=== PATIENT | female | born 1985 ===

== ENCOUNTER 2018-11-30 20:22 | Observation (INO) | payer SELFPAY ==
[2018-11-30] MEDS ORDERED: Sodium Chloride 0.9% 1,000 ML IV STA (22:15)
--- NOTE | 2018-11-30 22:24 | ED PDOC ---
Arrival/HPI - General Chief Complaint: Abdominal Pain Time Seen by Provider: 11/30/18 20:28 Historian: Patient - History of Present Illness Narrative History of Present Illness (Text): 11/30/18 22:15 33 year old female, with no significant past medical history, presents to the emergency department complaining of abdominal pain. Patient reports she has been experiencing diffuse abdominal pain with associated nausea and vomiting since this afternoon. Patient states she is unable to tolerate PO. Patient also notes she is currently menstruating and denies any recent travel. Patient denies any fevers, chills, headache, dizziness, chest pain, shortness of breath, dyspnea on exertion, cough, back pain, neck pain, or any other complaints. Time/Duration: Other (this afternoon) Symptom Onset: Gradual Symptom Course: Unchanged Activities at Onset: Light Context: Home Past Medical History - Provider Review Nursing Documentation Reviewed: Yes - Genitourinary/Gynecological Other/Comment: PCOS - Psychiatric Hx Substance Use: Yes - Anesthesia Hx Anesthesia: No Hx Anesthesia Reactions: No Hx Malignant Hyperthermia: No Family/Social History - Physician Review Nursing Documentation Reviewed: Yes Family/Social History: Unknown Family HX Smoking Status: Light Smoker < 10 Cigarettes Daily Hx Alcohol Use: Yes Frequency of alcohol use: Socially Hx Substance Use: Yes Substance used: marijuana Allergies/Home Meds Allergies/Adverse Reactions: Allergies ampicillin Allergy (Verified 11/30/18 21:23) ANAPHYLAXIS Review of Systems - Physician Review All systems were reviewed & negative as marked: Yes - Review of Systems Constitutional: absent: Fevers Respiratory: absent: SOB, Cough, Wheezing Cardiovascular: absent: Chest Pain Gastrointestinal: Abdominal Pain, Nausea, Vomiting Genitourinary Female: absent: Dysuria, Frequency, Hematuria, Urine Output Changes Musculoskeletal: absent: Back Pain, Neck Pain Skin: absent: Rash Neurological: absent: Headache, Dizziness Physical Exam Vital Signs Reviewed: Yes Vital Signs Temp Pulse Resp BP Pulse Ox 11/30/18 22:18 98.7 F 69 20 136/63 100 11/30/18 20:23 98.2 F 102 H 18 129/91 H 97 Temperature: Afebrile Blood Pressure: Normal Pulse: Regular (102 bpm) Respiratory Rate: Normal Appearance: Positive for: Well-Appearing, Non-Toxic Pain Distress: None Mental Status: Positive for: Alert and Oriented X 3 - Systems Exam Head: Present: Atraumatic, Normocephalic Pupils: Present: PERRL Extroacular Muscles: Present: EOMI Conjunctiva: Present: Normal Mouth: Present: Moist Mucous Membranes Neck: Present: Normal Range of Motion Respiratory/Chest: Present: Clear to Auscultation, Good Air Exchange. No: Respiratory Distress, Accessory Muscle Use Cardiovascular: Present: Regular Rate and Rhythm, Normal S1, S2. No: Murmurs Abdomen: Present: Tenderness (diffuse abdominal tenderness). No: Distention, Peritoneal Signs Upper Extremity: Present: Normal Inspection. No: Cyanosis, Edema Lower Extremity: Present: Normal Inspection. No: Edema Neurological: Present: GCS=15, CN II-XII Intact, Speech Normal Skin: Present: Warm, Dry, Normal Color. No: Rashes Psychiatric: Present: Alert, Oriented x 3, Normal Insight, Normal Concentration Medical Decision Making ED Course and Treatment: 11/30/18 22:23 Impression: 17 year old female presents to the Emergency department complaining of abdominal pain since this afternoon. Plan: -- Labs -- CT Abdomen and Pelvis -- IV Fluids -- Toradol -- Reassess and disposition Prior Visits: Notes and results from previous visits were reviewed. Progress Notes: 12/01/18 01:34 CT Abdomen and Pelvis: Moderate amount of free fluid is noted in the abdomen and pelvis with increased density reaching 32 Hounsfield units. 3.3 cm hypodense cystic lesion of the left ovary. Enhancing hepatic lesion measuring 2.4 cm adjacent to the suprahepatic IVC suggestive of a benign hemangioma. Benign and chronic, uncomplicated. The remaining liver is of uniform attenuation without mass or defect. There is no intra or extrahepatic biliary ductal dilatation. The spleen is normal. The gallbladder is within normal limits. The pancreas is of normal contour and attenuation characteristics. There is no evidence of adrenal mass. Both kidneys demonstrate prompt and equal nephrograms. The kidneys are normal in size, shape and configuration. There is no evidence of renal or ureteral mass. No renal or ureteral calculi are identified. There is no hydroureter or hydronephrosis. No evidence for appendicitis. There is no bowel wall thickening. No evidence for small or large bowel obstruction. There is no evidence of intrinsic or extrinsic bladder mass. Images of the lung bases show no evidence of pleural or parenchymal mass. There are no pleural effusions. The bony structures are free of lytic or blastic lesions. IMPRESSION: Moderate amount of mildly hyperdense fluid in the abdomen and pelvis. Findings may represent moderate amount of blood tinged peritoneal fluid. This can be secondary to ruptured hemorrhagic lesion of the ovaries like hemorrhagic cyst, ruptured follicle or even ruptured ectopic . Clinical evaluation, correlation with beta-hCG levels and a surgical consultation are suggested. No active contrast extravasation is documented to suggest active bleeding. Thank you for your kind referral of this patient. Electronically signed on Dec 01, 2018 1:30:55 AM EST by: Esteban Gross M.D., Certified by ABR, MSK, Neuroradiology 12/01/18 01:38 Case discussed with surgical consultant application software developer, who will evaluate pt in emergency department. 12/01/18 02:46 Case discussed with medical care manager application software developer, who is aware and agrees with plan. 12/01/18 02:[address] Rodriguez, who is aware and agrees with plan. Accepts pt in to hospitalist service. Pt will go to [facility] observation for abdominal pain. 12/01/18 04:00 Patient was evaluated by in the ED/discussed with surgeon application software developer . - Lab Interpretations I have reviewed the lab results: Yes - RAD Interpretation Radiology Orders: 11/30/18 22:14 ABD & PELVIS IV CONTRAST ONLY [CT] Stat Barrel Scraper: Radiologist - Medication Orders Current Medication Orders: Sodium Chloride (Sodium Chloride 0.9%) 1,000 mls @ 999 mls/hr IV .Q1H1M STA Stop: 11/30/18 23:15 Discontinued Medications Ketorolac Tromethamine (Toradol) 30 mg IVP ONCE ONE Stop: 11/30/18 22:16 - Scribe Statement The provider has reviewed the documentation as recorded by the Scribe Alee wilkinson with Maryam All medical record entries made by the Scribe were at my direction and personally dictated by me. I have reviewed the chart and agree that the record accurately reflects my personal performance of the history, physical exam, medical decision making, and the department course for this patient. I have also personally directed, reviewed, and agree with the discharge instructions and disposition. Disposition/Present on Arrival - Present on Arrival Any Indicators Present on Arrival: No History of DVT/PE: No History of Uncontrolled Diabetes: No Urinary Catheter: No History of Decub. Ulcer: No History Surgical Site Infection Following: None - Disposition Have Diagnosis and Disposition been Completed?: Yes Diagnosis: Abdominal pain Disposition: HOSPITALIZED Disposition Time: 03:04 Patient Plan: Observation Patient Problems: Current Active Problems Problem Status Onset Abdominal pain Acute Condition: STABLE
[2018-11-30 22:26] LABS: MEAN CORPUSCULAR HEMOGLOBIN 31.9 pg (25.0-35.0); MEAN CORPUSCULAR HGB CONC 33.2 g/dl (31.0-37.0); MEAN PLATELET VOLUME 10.2 fl (7.0-11.0); RBC 3.76 10^6/uL (3.5-6.1); WHITE BLOOD COUNT 14.8 10^3/uL (4.5-11.0)
[2018-11-30 22:38] LABS: ALB/GLOB RATIO 1.6 (1.1-1.8); ALBUMIN 4.6 g/dL (3.0-4.8); ALT/SGPT 26 U/L (7-56); AST/SGOT 25 U/L (14-36); BLOOD UREA NITROGEN 17 mg/dL (7-21); CALCIUM 9.5 mg/dL (8.4-10.5); GFR NON-AFRICAN AMERICAN > 60; LIPASE 62 U/L (23-300)
[2018-11-30] MEDS ORDERED: Iohexol 350 MG/100 ML VIAL ONE (22:57)
[2018-12-01] MEDS ORDERED: Aztreonam 1 Gm in NS 100mL 100 ML IVPB STA (01:49)
[2018-12-01] MEDS ORDERED: metroNIDAZOLE IV 500 mg/100 ml 500 MG/100 ML BAG IVPB STA (01:50)
[2018-12-01] MEDS ORDERED: Morphine 2 mg/ml ISec IVP STA (02:03)
--- NOTE | 2018-12-01 03:42 | CP.PCM.HP ---
<Osmar Pierce - Last Filed: 12/01/18 04:32> History of Present Illness - History of Present Illness History of Present Illness: Osmar Pierce, PGY-1, Internal Medicine History and Physical for Dr. Rodriguez 33 year old female with past medical history of chlamydia which was treated and PCOS presents with 2 day history of diffuse abdominal pain. Patient reports that she has never this pain before. She reports that the pain is a severe cramping pain that started bilaterally in the pelvis but has now radiated to the upper abdomen. Patient also reports that the pain radiates to bilateral flank regions. Patient had 2-3 episodes of nonbloody, nonbilious vomiting yesterday. Patient no longer complains of nausea or vomiting. Patient has had multiple episodes of yellow-green diarrhea for the past day. Patient denies fever but reports that she is currently on her period and thus has had hematuria. Patient denies dysuria. Her last period prior to this period was on October 20. Patient has abnormal periods due to her PCOS, however, the length of her periods and the amount of bleeding is normal. This period has had decreased bleeding in comparison to the prior periods. Patient is currently sexually active with a single partner she has had for 3 years. Partner was recently tested for STDs and found to be negative. Patient denies chest pain, shortness of breath, headaches, dizziness, change in vision, change in hearing, lower extremity swelling. 12- point ROS was negative except for what was mentioned above. PMH: as mentioned above PSH: denies FMHx: father's side has history of unspecified "ovarian issues". Otherwise, family history is not pertinent. SHx: smokes 1/2 PPD for 10 years, drinks 1 glass of wine or more socially on the weekends, reports using marijuana 3-4 times a week Allergies: ampicillin leading to inflammation of throat PCP: none Present on Admission - Present on Admission Any Indicators Present on Admission: No Review of Systems - Constitutional Constitutional: absent: Anorexia, Chills, Fever, Headache, Weakness - EENT Eyes: absent: Blurred Vision Ears: absent: Ear Discharge - Cardiovascular Cardiovascular: absent: Chest Pain, Dyspnea - Respiratory Respiratory: absent: Cough, Hemoptysis, Wheezing - Gastrointestinal Gastrointestinal: Abdominal Pain, Diarrhea (yellow-green), Nausea, Vomiting. absent: Belching, Bloating, Constipation, Heartburn - Genitourinary Genitourinary: Hematuria. absent: Dysuria, Urinary Incontinence - Menstruation Menstruation: Currently Menstual, Cycle >35 Days, Menses 1-7 Days, Normal Menses - Musculoskeletal Musculoskeletal: absent: Arthralgias - Integumentary Integumentary: absent: Acne, Alopecia - Neurological Neurological: absent: Focal Weakness, Headaches Past Patient History - Past Social History Smoking Status: Light Smoker < 10 Cigarettes Daily Alcohol: Social Drugs: Cannabis - GENITOURINARY/GYNECOLOGICAL Other/Comment: PCOS - PSYCHIATRIC Hx Substance Use: Yes - SURGICAL HISTORY Hx Surgeries: No - ANESTHESIA Hx Anesthesia: No Hx Anesthesia Reactions: No Hx Malignant Hyperthermia: No Meds Allergies/Adverse Reactions: Allergies Allergy/AdvReac Type Severity Reaction Status Date / Time ampicillin Allergy ANAPHYLAXIS Verified 11/30/18 21:23 Physical Exam - Head Exam Head Exam: ATRAUMATIC, NORMAL INSPECTION, NORMOCEPHALIC - Eye Exam Eye Exam: EOMI Pupil Exam: NORMAL ACCOMODATION - ENT Exam ENT Exam: Mucous Membranes Moist - Respiratory Exam Respiratory Exam: Clear to Auscultation Bilateral, NORMAL BREATHING PATTERN - Cardiovascular Exam Cardiovascular Exam: REGULAR RHYTHM - GI/Abdominal Exam GI & Abdominal Exam: Normal Bowel Sounds, Soft, Tenderness. absent: Distended, Firm, Guarding, Mass, Pulsatile Mass, Rebound - Extremities Exam Extremities exam: Positive for: full ROM, normal inspection - Back Exam Back exam: tenderness (right flank) - Neurological Exam Neurological exam: Alert, CN II-XII Intact, Oriented x3 - Psychiatric Exam Psychiatric exam: Normal Affect, Normal Mood - Skin Skin Exam: Dry, Intact, Normal Color Results - Vital Signs Recent Vital Signs: Last Vital Signs Temp 98.5 F 12/01/18 01:09 Pulse 73 12/01/18 01:09 Resp 19 12/01/18 01:09 BP 113/64 12/01/18 01:09 Pulse Ox 100 12/01/18 01:09 - Labs Result Diagrams: 11/30/18 22:00 11/30/18 22:00 Labs: Laboratory Results - last 24 hr 11/30/18 11/30/18 11/30/18 22:00 22:00 22:00 WBC 14.8 H RBC 3.76 Hgb 12.0 Hct 36.1 MCV 96.0 MCH 31.9 MCHC 33.2 RDW 13.0 Plt Count 287 MPV 10.2 Sodium 138 Potassium 4.2 Chloride 105 Carbon Dioxide 25 Anion Gap 12 BUN 17 Creatinine 0.6 L Est GFR ( Amer) > 60 Est GFR (Non-Af Amer) > 60 Random Glucose 102 Calcium 9.5 Total Bilirubin 0.7 AST 25 ALT 26 Alkaline Phosphatase 57 Total Protein 7.5 Albumin 4.6 Globulin 2.9 Albumin/Globulin Ratio 1.6 Lipase 62 Beta HCG, Quant < 2.39 Assessment & Plan - Assessment and Plan (Free Text) Assessment: 33 year old female with past medical history of chlamydia which was treated and PCOS presents with 2 day history of diffuse abdominal pain. Patient reports that she has never this pain before. She reports that the pain is a severe cramping pain that started bilaterally in the pelvis but has now radiated to the upper abdomen. Patient also reports vomiting and diarrhea. Plan: Abdominal Pain 2/2 to hemorrhagic ovarian cyst vs. ovarian cyst. Rule out PID, gastroenteritis, UTI. Doubt ectopic -CTAP: mildly hyperdense fluid in abdomen and pelvis. Blood tinged peritoneal fluid. Possibly due to ruptured hemorrhagic lesion of the ovaries. -Patient has history of PCOS and chlamydia. -Leukocytosis at 14.8 -UA ordered rule out UTI -Pelvic ultrasound ordered to further evaluate possible hemorrhagic ovarian cyst -Chlamydia and Gonorrhea culture ordered to rule out PID -Doubt ruptured ectopic as bHCG is less than 2.39 and vital signs are within normal limits at this time -Toradol for moderate pain and morphine for severe pain as needed Current use of tobacco, alcohol, and marijuana -Patient counseled regarding tobacco, alcohol, and marijuana use. -Nicotine patch ordered -[facility] protocol GI prophylaxis: pepcid 20 mg daily DVT prophylaxis: lovenox 40 mg daily Patient plan discussed with Dr. Rodriguez - Date & Time Date: 12/01/18 Time: 03:45 <Magui Rodriguez - Last Filed: 12/01/18 05:59> Results - Vital Signs Recent Vital Signs: Last Vital Signs Temp 98.5 F 12/01/18 01:09 Pulse 73 12/01/18 01:09 Resp 19 12/01/18 01:09 BP 113/64 12/01/18 01:09 Pulse Ox 100 12/01/18 01:09 - Labs Result Diagrams: 11/30/18 22:00 11/30/18 22:00 Labs: Laboratory Results - last 24 hr 11/30/18 11/30/18 11/30/18 22:00 22:00 22:00 WBC 14.8 H RBC 3.76 Hgb 12.0 Hct 36.1 MCV 96.0 MCH 31.9 MCHC 33.2 RDW 13.0 Plt Count 287 MPV 10.2 Sodium 138 Potassium 4.2 Chloride 105 Carbon Dioxide 25 Anion Gap 12 BUN 17 Creatinine 0.6 L Est GFR ( Amer) > 60 Est GFR (Non-Af Amer) > 60 Random Glucose 102 Calcium 9.5 Total Bilirubin 0.7 AST 25 ALT 26 Alkaline Phosphatase 57 Total Protein 7.5 Albumin 4.6 Globulin 2.9 Albumin/Globulin Ratio 1.6 Lipase 62 Beta HCG, Quant < 2.39 Urine Color Urine Appearance Urine pH Ur Specific [place] Urine Protein Urine Glucose (UA) Urine Ketones Urine Blood Urine Nitrate Urine Bilirubin Urine Urobilinogen Ur Leukocyte Esterase Urine RBC Urine WBC Ur Epithelial Cells Urine Bacteria 11/30/18 23:55 WBC RBC Hgb Hct MCV MCH MCHC RDW Plt Count MPV Sodium Potassium Chloride Carbon Dioxide Anion Gap BUN Creatinine Est GFR ( Amer) Est GFR (Non-Af Amer) Random Glucose Calcium Total Bilirubin AST ALT Alkaline Phosphatase Total Protein Albumin Globulin Albumin/Globulin Ratio Lipase Beta HCG, Quant Urine Color Light red Urine Appearance Cloudy Urine pH 6.0 Ur Specific [place] 1.015 Urine Protein Negative Urine Glucose (UA) Negative Urine Ketones 40 H Urine Blood Large H Urine Nitrate Negative Urine Bilirubin Negative Urine Urobilinogen 0.2 Ur Leukocyte Esterase Negative Urine RBC Tntc H Urine WBC 0 - 2 Ur Epithelial Cells 0 - 2 Urine Bacteria Rare Attending/Attestation - Attestation I have personally seen and examined this patient.: Yes I have fully participated in the care of the patient.: Yes I have reviewed all pertinent clinical information: Yes Notes (Text): 12/01/18 05:58 Seen in the ER when she was in bed # 3. Agree with history, physical examination, assessment and plan.
--- NOTE | 2018-12-01 04:03 | CP.PCM.CON ---
History of Present Illness - History of Present Illness History of Present Illness: General surgery consult for Dr. Menjivar Consulted for: abdominal pain, abdominal fluid Pt is a 33F with PMH of PCOS who presented to the ER for approximately 36 hours of abdominal pain. She states it started in her epigastrium and then spread subcostal and then to her entire abdomen. At first she attributed it to her current menstrual cycle, though she usually does not have dysmenorrhea normally. The pain got worse and did not subside with BM's and was associated with nausea and vomiting since yesterday AM so she came to ER. Pain is constant with severe episodes of spasmodic BL subcostal/epigastric pain. Patient also complains of pain in her right mid back. Patient denies any hematemesis--vomit was originally food and then yellow. Patient denies fevers, chest pain, SOB, diarrhea, constipation, melena, hematochezia, dysuria, hematuria, vaginal discharge or any other complaints. Patient has never had any prior episodes. Pt admits history of treated chlamydia many years ago and cervical biopsies many years ago, which were negative. She is monogamous and occasionally has unprotected sex with her boyfriend, not currently on control, negative urine beta-hcg Reviewed CT scan images and [facility] report, attempted to contact the [facility] reading radiologist regarding it and spoke to the hotline senior sales representative 4 times over 2 hours requesting call back starting at 1:30 AM--never received a call back. PMH: PCOS PSH: none ALL: Ampicillin social: smokes cigarettes daily, occasional ETOH, occasional Marijuana Review of Systems - Review of Systems All systems: reviewed and no additional remarkable complaints except (as per HPI) Past Patient History - Past Medical History & Family History Past Medical History?: Yes Pertinent Family History: Paternal aunts had "ovarian problems" after which one aunt diet--does not know details - Past Social History Smoking Status: Light Smoker < 10 Cigarettes Daily Alcohol: Social Drugs: Cannabis - GENITOURINARY/GYNECOLOGICAL Hx Reproductive Disorders: Yes (PCOS) Hx Sexually Transmitted Disorders: Yes (prior chlamydia--treated medically) - PSYCHIATRIC Hx Substance Use: Yes - SURGICAL HISTORY Hx Surgeries: No - ANESTHESIA Hx Anesthesia: No Hx Anesthesia Reactions: No Hx Malignant Hyperthermia: No Meds Allergies/Adverse Reactions: Allergies Allergy/AdvReac Type Severity Reaction Status Date / Time ampicillin Allergy ANAPHYLAXIS Verified 11/30/18 21:23 - Medications Medications: Current Medications Nicotine (Nicoderm Cq) 1 patch TD DAILY ZAIDA Physical Exam - Constitutional Appears: Well, Non-toxic, No Acute Distress - Head Exam Head Exam: ATRAUMATIC, NORMOCEPHALIC - Eye Exam Eye Exam: Normal appearance. absent: Conjunctival injection, Scleral icterus - ENT Exam ENT Exam: Mucous Membranes Moist, Normal Oropharynx - Respiratory Exam Respiratory Exam: NORMAL BREATHING PATTERN. absent: Accessory Muscle Use, Respiratory Distress - Cardiovascular Exam Cardiovascular Exam: RRR - GI/Abdominal Exam GI & Abdominal Exam: Guarding (voluntary), Soft, Tenderness (diffuse moderate tenderness to palpation with severe epigastric/BL UQ tenderness to palpation). absent: Distended, Rebound, Rigid - Rectal Exam Rectal Exam: NORMAL INSPECTION. absent: Hemorrhoids, Fecal Impaction - Exam Bimanual exam: NORMAL BIMANUAL EXAM (bloody discharge d/t menses). absent: Adenexal Mass, Cervical Motion Tendernes - Extremities Exam Extremities exam: Positive for: pedal pulses present. Negative for: calf tenderness, pedal edema - Neurological Exam Neurological exam: Alert, Oriented x3 - Psychiatric Exam Psychiatric exam: Normal Affect, Normal Mood - Skin Skin Exam: Dry, Normal Color, Warm Results - Vital Signs Recent Vital Signs: Last Vital Signs Temp 98.5 F 12/01/18 01:09 Pulse 73 12/01/18 01:09 Resp 19 12/01/18 01:09 BP 113/64 12/01/18 01:09 Pulse Ox 100 12/01/18 01:09 - Labs Result Diagrams: 11/30/18 22:00 11/30/18 22:00 Labs: Laboratory Results - last 24 hr 11/30/18 11/30/18 11/30/18 22:00 22:00 22:00 WBC 14.8 H RBC 3.76 Hgb 12.0 Hct 36.1 MCV 96.0 MCH 31.9 MCHC 33.2 RDW 13.0 Plt Count 287 MPV 10.2 Sodium 138 Potassium 4.2 Chloride 105 Carbon Dioxide 25 Anion Gap 12 BUN 17 Creatinine 0.6 L Est GFR ( Amer) > 60 Est GFR (Non-Af Amer) > 60 Random Glucose 102 Calcium 9.5 Total Bilirubin 0.7 AST 25 ALT 26 Alkaline Phosphatase 57 Total Protein 7.5 Albumin 4.6 Globulin 2.9 Albumin/Globulin Ratio 1.6 Lipase 62 Beta HCG, Quant < 2.39 - Imaging and Cardiology CT scan - abdomen Status: Image reviewed by me, Report reviewed by me CT scan - pelvis Status: Image reviewed by me, Report reviewed by me Assessment & Plan - Assessment and Plan (Free Text) Assessment: 33F with Abdominal pain, nausea, vomiting and free peritoneal fluid concerning for bleeding of unknown source Plan: Trend CBC, CMP UA Abdominal US, pelvic US May consider gynecology consult Will follow up official read of the CT scan PRN pain and nausea medication NPO IVF Further surgical planning pending clinical progress and study results Discussed with Dr. Menjivar, who agrees with above Maria Isabel Burden, PGY2
[2018-12-01] MEDS ORDERED: Lactated Ringer's 1,000 ML IV SCH (05:15)
[2018-12-01 05:42] LABS: URINE BILIRUBIN NEGATIVE (NEGATIVE); URINE BLOOD LARGE (NEGATIVE); URINE GLUCOSE (UA) NEGATIVE (NEGATIVE); URINE LEUKOCYTE ESTERASE NEGATIVE Leu/uL (NEGATIVE); URINE PROTEIN NEGATIVE mg/dL (<30 mg/dL); URINE UROBILINOGEN 0.2 E.U./dL (<1 E.U./dL)
[2018-12-01 05:43] LABS: URINE APPEARANCE CLOUDY (CLEAR); URINE COLOR LIGHT RED (YELLOW)
[2018-12-01 05:57] LABS: URINE BACTERIA RARE /hpf; URINE EPITHELIAL CELLS 0 - 2 /hpf (0-5); URINE RBC TNTC /hpf (0-2); URINE WBC 0 - 2 /hpf (0-6)
[2018-12-01] MEDS: Morphine 2 mg/ml ISec IVP PRN ×2 (06:53→10:49)
[2018-12-01 08:55] LABS: BASO # 0.02 K/mm3 (0.0-2.0); BASO % 0.2 % (0.0-3.0); EOS # 0.1 (0.0-0.7); EOS % 1.5 % (1.5-5.0); GRAN # 5.58 (1.4-6.5); GRAN % 68.5 % (50.0-68.0); LYMPH % 24.3 % (22.0-35.0); MEAN CELL VOLUME 95.2 fl (80.0-105.0); MEAN CORPUSCULAR HEMOGLOBIN 31.7 pg (25.0-35.0); MEAN CORPUSCULAR HGB CONC 33.3 g/dl (31.0-37.0); MEAN PLATELET VOLUME 9.9 fl (7.0-11.0); MONO # 0.5 (0.1-0.6); MONO % 5.5 % (1.0-6.0); RBC 3.15 10^6/uL (3.5-6.1); WHITE BLOOD COUNT 8.2 10^3/uL (4.5-11.0)
[2018-12-01 08:59] LABS: INR 1.03; PARTIAL THROMBOPLASTIN TIME 24.3 Seconds (25.1-36.5); PROTHROMBIN TIME 11.9 SECONDS (9.4-12.5)
[2018-12-01 09:05] LABS: ALB/GLOB RATIO 1.5 (1.1-1.8); ALBUMIN 3.8 g/dL (3.0-4.8); ALT/SGPT 23 U/L (7-56); AST/SGOT 14 U/L (14-36); BLOOD UREA NITROGEN 15 mg/dL (7-21); GFR NON-AFRICAN AMERICAN > 60
--- NOTE | 2018-12-01 09:12 | RAD ---
Date of service: 12/01/2018 HISTORY: epigastric pain COMPARISON: No prior. FINDINGS: LUNGS: No active pulmonary disease. PLEURA: No significant pleural effusion identified, no pneumothorax apparent. CARDIOVASCULAR: No aortic atherosclerotic calcification present. Normal cardiac size. No pulmonary vascular congestion. OSSEOUS STRUCTURES: No significant abnormalities. VISUALIZED UPPER ABDOMEN: Normal. OTHER FINDINGS: None. IMPRESSION: No active disease.
[2018-12-01] MEDS ORDERED: Sodium Chloride 0.9% 500 ML IV STA (09:46)
[2018-12-01] MEDS ORDERED: Enoxaparin 40 mg Syringe SC SCH (10:00)
--- NOTE | 2018-12-01 11:03 | CT ---
Date of service: 12/01/2018 PROCEDURE: CT Abdomen and Pelvis with contrast HISTORY: abdominal pain COMPARISON: None. TECHNIQUE: Contrast dose: 100 cc of Omni 350 Radiation dose: Total exam DLP = 228.37 mGy-cm. This CT exam was performed using one or more of the following dose reduction techniques: Automated exposure control, adjustment of the mA and/or kV according to patient size, and/or use of iterative reconstruction technique. FINDINGS: LOWER THORAX: Unremarkable. LIVER: There is a 2 cm hemangioma adjacent to the IVC. The liver is otherwise unremarkable GALLBLADDER AND BILE DUCTS: Unremarkable. PANCREAS: Unremarkable. No gross lesion or ductal dilatation. SPLEEN: Unremarkable. ADRENALS: Unremarkable. No mass. KIDNEYS AND URETERS: Unremarkable. No hydronephrosis. No solid mass. VASCULATURE: Unremarkable. No aortic aneurysm. No aortic atherosclerotic calcification or mural plaque present. BOWEL: Unremarkable. No obstruction. No gross mural thickening. APPENDIX: Normal appendix. PERITONEUM: There is a moderate amount of ascites that measures 32 Hounsfield units in density. LYMPH NODES: Unremarkable. No enlarged lymph nodes. BLADDER: Unremarkable. REPRODUCTIVE: There is a 2 x 3 cm left ovarian cyst BONES: No acute fracture. OTHER FINDINGS: The report concurs with the preliminary [facility] report IMPRESSION: Moderate amount of mildly hyperdense fluid in the abdomen and pelvis. Findings may represent a small amount of blood-tinged peritoneal fluid. This could be due to a ruptured hemorrhagic cyst or ectopic . Correlation with beta HCG levels is recommended.
--- NOTE | 2018-12-01 14:10 | CARD ---
APPROVED REPORT Date of service: 12/01/2018 EKG Measurement Heart [id number] ID [id number] <Conclusion> Sinus bradycardia Otherwise normal ECG
[2018-12-01 14:18] LABS: BASO # 0.01 K/mm3 (0.0-2.0); BASO % 0.2 % (0.0-3.0); EOS # 0.1 (0.0-0.7); EOS % 2.3 % (1.5-5.0); GRAN # 3.49 (1.4-6.5); GRAN % 57.4 % (50.0-68.0); LYMPH # 2.1 (1.2-3.4); LYMPH % 33.8 % (22.0-35.0); MEAN CELL VOLUME 95.7 fl (80.0-105.0); MEAN CORPUSCULAR HGB CONC 33.5 g/dl (31.0-37.0); MEAN PLATELET VOLUME 9.1 fl (7.0-11.0); MONO # 0.4 (0.1-0.6); MONO % 6.3 % (1.0-6.0); RBC 2.81 10^6/uL (3.5-6.1); RED CELL DISTRIBUTION WIDTH 12.8 % (11.5-14.5); WHITE BLOOD COUNT 6.1 10^3/uL (4.5-11.0)
--- NOTE | 2018-12-01 14:51 | US ---
Date of service: 12/01/2018 HISTORY: diffuse abdominal pain, nausea and vomiting COMPARISON: None. TECHNIQUE: Sonographic evaluation of the abdomen. FINDINGS: LIVER: Measures 13.4 cm. Hepatopedal blood flow. Fatty infiltration manifest ultrasonographically as increased echogenicity of the liver parenchyma. No mass. No intrahepatic bile duct dilatation. GALLBLADDER: Unremarkable. No gallstones. COMMON BILE DUCT: Measures 2.8 mm. No stones. No dilatation. PANCREAS: Unremarkable as visualized. No mass. No ductal dilatation. RIGHT KIDNEY: Measures 4.5 x 10.7cm. Normal echogenicity. No calculus, mass, or hydronephrosis. LEFT KIDNEY: Measures 5.4 x 11.6cm. Normal echogenicity. No calculus, mass, or hydronephrosis. SPLEEN: Normal in size and contour. No mass. AORTA: No aneurysmal dilatation. IVC: Unremarkable. OTHER FINDINGS: Trace perihepatic ascites. IMPRESSION: Trace right upper quadrant ascites. Otherwise unremarkable study.
--- NOTE | 2018-12-01 14:53 | US ---
Date of service: 12/01/2018 HISTORY: Abdominal pain/fluid, possible rupture ovary cyst LMP: Current COMPARISON: December 01, 2018 TECHNIQUE: Transabdominal only. Real-time technique with 2D, duplex and color Doppler FINDINGS: UTERUS: Measures 3.3 x 3.6 x 7.2 cm. Normal in size and appearance. No fibroid or other mass lesion seen. ENDOMETRIUM: Measures 3.4 mm in diameter. No ultrasound findings to suggest gestational sac, fluid, debris, mass or polyp or other pathologic process within the endometrium. CERVIX: No cervical abnormality identified. RIGHT OVARY: Measures 1.7 x 1.7 x 2.0 cm. No solid mass. Normal flow. LEFT OVARY: Measures 3.4 x 3.6 x 4.1 cm. No solid mass. Normal flow. Simple cyst 2.4 x 2.1 x 2.5 FREE FLUID: Trace fluid about both adnexa. OTHER FINDINGS: None. IMPRESSION: Unremarkable uterus, endometrial echo complex and right adnexa. Simple cyst left adnexa. Trace fluid in the pelvis.
[2018-12-01 23:27] VITALS: RESP 20
--- NOTE | 2018-12-02 07:11 | CP.PCM.PN ---
Subjective - Date & Time of Evaluation Date of Evaluation: 12/02/18 Time of Evaluation: 07:10 - Subjective Subjective: Resident Progress Note for Hospitalist Service Objective - Vital Signs/Intake and Output Vital Signs (last 24 hours): Temp Pulse Resp BP Pulse Ox 98.5 F 70 20 117/71 100 12/01/18 23:26 12/01/18 23:26 12/01/18 23:26 12/01/18 23:26 12/01/18 23:26 Intake and Output: 12/02/18 12/02/18 06:59 18:59 Intake Total 480 Balance 480 - Medications Medications: Current Medications Famotidine (Pepcid) 20 mg IVP DAILY [facility] Last Admin: 12/01/18 10:50 Dose: 20 mg Morphine Sulfate (Morphine) 1 mg IVP Q4H PRN PRN Reason: Pain, severe (8-10) Last Admin: 12/01/18 10:49 Dose: 1 mg Nicotine (Nicoderm Cq) 1 patch TD DAILY [facility] Last Admin: 12/01/18 10:50 Dose: 1 patch Ondansetron HCl (Zofran Inj) 4 mg IVP Q6H PRN PRN Reason: Nausea/Vomiting Last Admin: 12/01/18 10:50 Dose: 4 mg - Labs Labs: 12/01/18 14:00 12/01/18 08:10 PT 11.9 SECONDS (9.4-12.5) 12/01/18 08:10 INR 1.03 12/01/18 08:10 APTT 24.3 Seconds (25.1-36.5) L 12/01/18 08:10 - Additional Findings Additional findings: - Head Exam Head Exam: ATRAUMATIC, NORMAL INSPECTION, NORMOCEPHALIC - Eye Exam Eye Exam: EOMI Pupil Exam: NORMAL ACCOMODATION - ENT Exam ENT Exam: Mucous Membranes Moist - Respiratory Exam Respiratory Exam: Clear to Auscultation Bilateral, NORMAL BREATHING PATTERN - Cardiovascular Exam Cardiovascular Exam: REGULAR RHYTHM - GI/Abdominal Exam GI & Abdominal Exam: Normal Bowel Sounds, Soft, Tenderness. absent: Distended, Firm, Guarding, Mass, Pulsatile Mass, Rebound - Extremities Exam Extremities exam: Positive for: full ROM, normal inspection - Back Exam Back exam: tenderness (right flank) - Neurological Exam Neurological exam: Alert, CN II-XII Intact, Oriented x3 - Psychiatric Exam Psychiatric exam: Normal Affect, Normal Mood - Skin Skin Exam: Dry, Intact, Normal Color Assessment and Plan - Assessment and Plan (Free Text) Assessment: 33 year old female with past medical history of chlamydia which was treated and PCOS presents with 2 day history of diffuse abdominal pain. Patient reports that she has never this pain before. She reports that the pain is a severe cramping pain that started bilaterally in the pelvis but has now radiated to the upper abdomen. Patient also reports vomiting and diarrhea. Plan: Abdominal Pain 2/2 to hemorrhagic ovarian cyst vs. ovarian cyst. Rule out PID, gastroenteritis, UTI. Doubt ectopic -CTAP: mildly hyperdense fluid in abdomen and pelvis. Blood tinged peritoneal fluid. Possibly due to ruptured hemorrhagic lesion of the ovaries. -Patient has history of PCOS and chlamydia. -Leukocytosis at 14.8 -UA ordered rule out UTI -Pelvic ultrasound ordered to further evaluate possible hemorrhagic ovarian cyst -Chlamydia and Gonorrhea culture ordered to rule out PID -Doubt ruptured ectopic as bHCG is less than 2.39 and vital signs are within normal limits at this time -Toradol for moderate pain and morphine for severe pain as needed Current use of tobacco, alcohol, and marijuana -Patient counseled regarding tobacco, alcohol, and marijuana use. -Nicotine patch ordered -[facility] protocol GI prophylaxis: pepcid 20 mg daily DVT prophylaxis: lovenox 40 mg daily
--- NOTE | 2018-12-02 08:18 | CP.PCM.PN ---
Subjective - Date & Time of Evaluation Date of Evaluation: 12/02/18 Time of Evaluation: 06:45 - Subjective Subjective: Surgery Progress note. Dr. Menjivar. Pt seen and examined at bedside this morning. Tolerating diet. No new complaints. Abd pain is mildly improved. Discussed case with Edson Zhu, this morning. All images were reviewed by him. He states that the pelvic fluid as seen on imaging is trace and the patient can be discharged if pain is tolerated and she may follow up with him in his office on 12/08/18. Primary Medicine team notified about the discussion. Objective - Vital Signs/Intake and Output Vital Signs (last 24 hours): Temp Pulse Resp BP Pulse Ox 98.5 F 70 20 117/71 100 12/01/18 23:26 12/01/18 23:26 12/01/18 23:26 12/01/18 23:26 12/01/18 23:26 Intake and Output: 12/02/18 12/02/18 06:59 18:59 Intake Total 480 Balance 480 - Medications Medications: Current Medications Famotidine (Pepcid) 20 mg IVP DAILY [facility] Last Admin: 12/01/18 10:50 Dose: 20 mg Morphine Sulfate (Morphine) 1 mg IVP Q4H PRN PRN Reason: Pain, severe (8-10) Last Admin: 12/01/18 10:49 Dose: 1 mg Nicotine (Nicoderm Cq) 1 patch TD DAILY [facility] Last Admin: 12/01/18 10:50 Dose: 1 patch Ondansetron HCl (Zofran Inj) 4 mg IVP Q6H PRN PRN Reason: Nausea/Vomiting Last Admin: 12/01/18 10:50 Dose: 4 mg - Labs Labs: 12/01/18 14:00 12/01/18 08:10 PT 11.9 SECONDS (9.4-12.5) 12/01/18 08:10 INR 1.03 12/01/18 08:10 APTT 24.3 Seconds (25.1-36.5) L 12/01/18 08:10 - Constitutional Appears: Well, Non-toxic, No Acute Distress - Head Exam Head Exam: ATRAUMATIC, NORMAL INSPECTION - Eye Exam Eye Exam: EOMI, Normal appearance. absent: Scleral icterus - ENT Exam ENT Exam: Mucous Membranes Moist - GI/Abdominal Exam GI & Abdominal Exam: Soft, Tenderness (left lower quadrant tenderness to palpation). absent: Distended, Guarding, Rebound - Extremities Exam Extremities Exam: Normal Inspection. absent: Calf Tenderness - Neurological Exam Neurological Exam: Alert, Awake, Oriented x3 - Skin Skin Exam: Dry, Intact, Normal Color, Warm Assessment and Plan - Assessment and Plan (Free Text) Assessment: 33yo F with pelvic fluid, likely hemorrhagic gyn physician source. Plan: - Discussed case with OBGyn, Dr. Clarita Hobbs. Follow up in office 12/08/18 - Tolerating diet - Hemoglobin stable - No surgery intervention warranted at this time - Cleared for discharge from surgical standpoint Further recs as per Dr. Otto Montenegro PGY2 surgery
[2018-12-02 08:36] LABS: BASO # 0.01 K/mm3 (0.0-2.0); BASO % 0.2 % (0.0-3.0); EOS # 0.2 (0.0-0.7); EOS % 3.1 % (1.5-5.0); GRAN # 3.38 (1.4-6.5); GRAN % 60.7 % (50.0-68.0); HEMOGLOBIN 9.3 g/dL (12.0-16.0); LYMPH # 1.6 (1.2-3.4); LYMPH % 28.5 % (22.0-35.0); MEAN CELL VOLUME 95.6 fl (80.0-105.0); MEAN CORPUSCULAR HEMOGLOBIN 31.4 pg (25.0-35.0); MEAN CORPUSCULAR HGB CONC 32.9 g/dl (31.0-37.0); MONO # 0.4 (0.1-0.6); MONO % 7.5 % (1.0-6.0); RBC 2.96 10^6/uL (3.5-6.1); RED CELL DISTRIBUTION WIDTH 12.8 % (11.5-14.5); WHITE BLOOD COUNT 5.6 10^3/uL (4.5-11.0)
[2018-12-02 08:37] VITALS: BP 91/54; PULSE 61; TEMP 98; O2SAT 98
[2018-12-02 08:47] LABS: ALB/GLOB RATIO 1.4 (1.1-1.8); ALBUMIN 3.9 g/dL (3.0-4.8); ALT/SGPT 23 U/L (7-56); AST/SGOT 24 U/L (14-36); BLOOD UREA NITROGEN 11 mg/dL (7-21); CALCIUM 8.8 mg/dL (8.4-10.5); GFR NON-AFRICAN AMERICAN > 60
[2018-12-02] MEDS: Morphine 2 mg/ml ISec IVP PRN (11:06)
--- NOTE | 2018-12-02 11:20 | CP.PCM.DIS ---
<CarlaLeorasydney L - Last Filed: 12/02/18 13:49> Provider - Provider Date of Admission: 12/01/18 03:01 Attending physician: Ruben Ferreira MD Primary care physician: NO PRIMARY CARE PROVIDER Consults: 12/01/18 03:31 Consult [Physician Consult] Routine Comment: Consulting Provider: Milan Menjivar Consulting Physician: Milan Menjivar Reason for Consult: abdominal pain 12/01/18 08:43 Physician Consult Routine Comment: Consulting Provider: Clarita Hobbs Consulting Physician: Clarita Hobbs Reason for Consult: ? rauptured hemmorragic cyst of ovaries Time Spent in preparation of Discharge (in minutes): 35 Diagnosis - Discharge Diagnosis (1) Peritoneal fluid Status: Acute (2) Abdominal pain Status: Acute Hospital Course - Lab Results Lab Results: Micro Results 12/01/18 08:05 Blood Blood Culture - Preliminary NO GROWTH AFTER 24 HOURS 12/01/18 07:50 Blood Blood Culture - Preliminary NO GROWTH AFTER 24 HOURS Most Recent Lab Values WBC 5.6 10^3/uL (4.5-11.0) 12/02/18 07:30 RBC 2.96 10^6/uL (3.5-6.1) L 12/02/18 07:30 Hgb 9.3 g/dL (12.0-16.0) L 12/02/18 07:30 Hct 28.3 % (36.0-48.0) L 12/02/18 07:30 MCV 95.6 fl (80.0-105.0) 12/02/18 07:30 MCH 31.4 pg (25.0-35.0) 12/02/18 07:30 MCHC 32.9 g/dl (31.0-37.0) 12/02/18 07:30 RDW 12.8 % (11.5-14.5) 12/02/18 07:30 Plt Count 222 10^3/uL (120.0-450.0) 12/02/18 07:30 MPV 10.0 fl (7.0-11.0) 12/02/18 07:30 Gran % 60.7 % (50.0-68.0) 12/02/18 07:30 Lymph % (Auto) 28.5 % (22.0-35.0) 12/02/18 07:30 [place] % (Auto) 7.5 % (1.0-6.0) H 12/02/18 07:30 Eos % (Auto) 3.1 % (1.5-5.0) 12/02/18 07:30 Baso % (Auto) 0.2 % (0.0-3.0) 12/02/18 07:30 Gran # 3.38 (1.4-6.5) 12/02/18 07:30 Lymph # (Auto) 1.6 (1.2-3.4) 12/02/18 07:30 [place] # (Auto) 0.4 (0.1-0.6) 12/02/18 07:30 Eos # (Auto) 0.2 (0.0-0.7) 12/02/18 07:30 Baso # (Auto) 0.01 K/mm3 (0.0-2.0) 12/02/18 07:30 PT 11.9 SECONDS (9.4-12.5) 12/01/18 08:10 INR 1.03 12/01/18 08:10 APTT 24.3 Seconds (25.1-36.5) L 12/01/18 08:10 Sodium 140 mmol/L (132-148) 12/02/18 07:30 Potassium 4.1 mmol/L (3.6-5.0) 12/02/18 07:30 Chloride 108 mmol/L (98-107) H 12/02/18 07:30 Carbon Dioxide 26 mmol/L (21-33) 12/02/18 07:30 Anion Gap 10 (10-20) 12/02/18 07:30 BUN 11 mg/dL (7-21) 12/02/18 07:30 Creatinine 0.6 mg/dl (0.7-1.2) L 12/02/18 07:30 Est GFR ( Amer) > 60 12/02/18 07:30 Est GFR (Non-Af Amer) > 60 12/02/18 07:30 Random Glucose 76 mg/dL (70-110) 12/02/18 07:30 Calcium 8.8 mg/dL (8.4-10.5) 12/02/18 07:30 Phosphorus 3.2 mg/dL (2.5-4.5) 12/02/18 07:30 Magnesium 2.2 mg/dL (1.7-2.2) 12/02/18 07:30 Total Bilirubin 0.6 mg/dL (0.2-1.3) 12/02/18 07:30 AST 24 U/L (14-36) 12/02/18 07:30 ALT 23 U/L (7-56) 12/02/18 07:30 Alkaline Phosphatase 51 U/L (38-126) 12/02/18 07:30 Total Protein 6.6 g/dL (5.8-8.3) 12/02/18 07:30 Albumin 3.9 g/dL (3.0-4.8) 12/02/18 07:30 Globulin 2.7 gm/dL 12/02/18 07:30 Albumin/Globulin Ratio 1.4 (1.1-1.8) 12/02/18 07:30 Lipase 62 U/L (23-300) 11/30/18 22:00 Beta HCG, Quant < 2.39 mIU/mL (0-6.15) 11/30/18 22:00 Urine Color Light red (YELLOW) 11/30/18 23:55 Urine Appearance Cloudy (CLEAR) 11/30/18 23:55 Urine pH 6.0 (4.7-8.0) 11/30/18 23:55 Ur Specific [place] 1.015 (1.005-1.035) 11/30/18 23:55 Urine Protein Negative mg/dL (<30 mg/dL) 11/30/18 23:55 Urine Glucose (UA) Negative mg/dL (NEGATIVE) 11/30/18 23:55 Urine Ketones 40 mg/dL (NEGATIVE) H 11/30/18 23:55 Urine Blood Large (NEGATIVE) H 11/30/18 23:55 Urine Nitrate Negative (NEGATIVE) 11/30/18 23:55 Urine Bilirubin Negative (NEGATIVE) 11/30/18 23:55 Urine Urobilinogen 0.2 E.U./dL (<1 E.U./dL) 11/30/18 23:55 Ur Leukocyte Esterase Negative [place]/uL (NEGATIVE) 11/30/18 23:55 Urine RBC Tntc /hpf (0-2) H 11/30/18 23:55 Urine WBC 0 - 2 /hpf (0-6) 11/30/18 23:55 Ur Epithelial Cells 0 - 2 /hpf (0-5) 11/30/18 23:55 Urine Bacteria Rare /hpf (NONE) 11/30/18 23:55 Blood Type A POSITIVE 12/01/18 08:10 Blood Type Confirm A POSITIVE 12/01/18 09:30 Antibody Screen Negative 12/01/18 08:10 BBK History Checked No verified bt 12/01/18 08:10 - Hospital Course Hospital Course: On admission: 33 year old female with past medical history of chlamydia which was treated and PCOS presents with 2 day history of diffuse abdominal pain. Patient reports that she has never this pain before. She reports that the pain is a severe cramping pain that started bilaterally in the pelvis but has now radiated to the upper abdomen. Patient also reports that the pain radiates to bilateral flank regions. Patient had 2-3 episodes of nonbloody, nonbilious vomiting yesterday. Patient no longer complains of nausea or vomiting. Patient has had multiple episodes of yellow-green diarrhea for the past day. Patient denies fever but reports that she is currently on her period and thus has had hematuria. Patient denies dysuria. Her last period prior to this period was on October 20. Patient has abnormal periods due to her PCOS, however, the length of her periods and the amount of bleeding is normal. This period has had decreased bleeding in comparison to the prior periods. Patient is currently sexually active with a single partner she has had for 3 years. Partner was recently tested for STDs and found to be negative. Patient denies chest pain, shortness of breath, headaches, dizziness, change in vision, change in hearing, lower extremity swelling. 12-point ROS was negative except for what was mentioned above. Hospital course: Patient had abdomen pelvis CT done which showed Moderate amount of mildly hyperdense fluid in the abdomen and pelvis. Findings may represent a small amount of blood-tinged peritoneal fluid. This could be due to a ruptured hemorrhagic cyst or ectopic . Correlation with beta HCG levels is recommended. Patient was given dose of flagyl, aztreonam. Pain was managed with morphine. Pelvis ultrasound showed unremarkable uterus, endometrial echo complex, right adnexa, simple cyst left adnexa, trace fluid in pelvis. Abdomen ultrasound showed trace ascites. Surgery and LUDLOW MACHINE OPERATOR was consulted. Recommendation was given for patient to followup outpatient. Patient was optimized for discharge. Please see EMR for full summary. - Date & Time of H&P Date of H&P: 12/01/18 Time of H&P: 03:28 Discharge Exam - Additional Findings Additional findings: - Constitutional Appears: Well, Non-toxic, No Acute Distress - Head Exam Head Exam: ATRAUMATIC, NORMOCEPHALIC - Eye Exam Eye Exam: Normal appearance. absent: Conjunctival injection - ENT Exam ENT Exam: Mucous Membranes Moist - Respiratory Exam Respiratory Exam: NORMAL BREATHING PATTERN. absent: Accessory Muscle Use, Respiratory Distress - Cardiovascular Exam Cardiovascular Exam: RRR, S1 and S2 present. absent: Systolic Murmurs - GI/Abdominal Exam GI & Abdominal Exam: Bowel Sounds Present, Soft. absent: Distended, Rebound, Rigid, Tenderness, Guarding - Rectal Exam Rectal Exam: NORMAL INSPECTION. absent: Hemorrhoids, Fecal Impaction - Extremities Exam Extremities exam: Positive for: pedal pulses present. Negative for: calf tenderness, pedal edema - Neurological Exam Neurological exam: Alert, Oriented x3 - Psychiatric Exam Psychiatric exam: Normal Affect, Normal Mood - Skin Skin Exam: Dry, Normal Color, Warm Discharge Plan - Discharge Medications Prescriptions: Acetaminophen [Tylenol] 325 mg PO DAILY PRN 5 Days capsule PRN Reason: Pain, Moderate (4-7) - Follow Up Plan Condition: STABLE Disposition: HOME/ ROUTINE Patient education suggested?: Yes Instructions: Polycystic Ovary Syndrome, Acute Abdominal Pain (GEN) Additional Instructions: Please follow up with your primary medical doctor within one week. An appointment will be made for you to follow up at the [facility]. Please call to confirm appointment time. Also follow up with OB-CYLINDER CHECKER Dr. Clarita Hobbs within one week. You have been prescribed Tylenol. Please take as prescribed as needed for pain. Resume any home medications as prescribed. Return to ED if symptoms return or worsen. Referrals: [facility] [Outside] Clarita Hobbs MD [Staff Provider] - PCP,NO [Primary Care Provider] - <Ruben Ferreira - Last Filed: 12/02/18 14:31> Provider - Provider Date of Admission: 12/01/18 03:01 Attending physician: Ruben Ferreira MD Primary care physician: NO PRIMARY CARE PROVIDER Consults: 12/01/18 03:31 Consult [Physician Consult] Routine Comment: Consulting Provider: Milan Menjivar Consulting Physician: Milan Menjivar Reason for Consult: abdominal pain 12/01/18 08:43 Physician Consult Routine Comment: Consulting Provider: Clarita Hobbs Consulting Physician: Clarita Hobbs Reason for Consult: ? rauptured hemmorragic cyst of ovaries Hospital Course - Lab Results Lab Results: Micro Results 12/01/18 08:05 Blood Blood Culture - Preliminary NO GROWTH AFTER 24 HOURS 12/01/18 07:50 Blood Blood Culture - Preliminary NO GROWTH AFTER 24 HOURS Most Recent Lab Values WBC 5.6 10^3/uL (4.5-11.0) 12/02/18 07:30 RBC 2.96 10^6/uL (3.5-6.1) L 12/02/18 07:30 Hgb 9.3 g/dL (12.0-16.0) L 12/02/18 07:30 Hct 28.3 % (36.0-48.0) L 12/02/18 07:30 MCV 95.6 fl (80.0-105.0) 12/02/18 07:30 MCH 31.4 pg (25.0-35.0) 12/02/18 07:30 MCHC 32.9 g/dl (31.0-37.0) 12/02/18 07:30 RDW 12.8 % (11.5-14.5) 12/02/18 07:30 Plt Count 222 10^3/uL (120.0-450.0) 12/02/18 07:30 MPV 10.0 fl (7.0-11.0) 12/02/18 07:30 Gran % 60.7 % (50.0-68.0) 12/02/18 07:30 Lymph % (Auto) 28.5 % (22.0-35.0) 12/02/18 07:30 [place] % (Auto) 7.5 % (1.0-6.0) H 12/02/18 07:30 Eos % (Auto) 3.1 % (1.5-5.0) 12/02/18 07:30 Baso % (Auto) 0.2 % (0.0-3.0) 12/02/18 07:30 Gran # 3.38 (1.4-6.5) 12/02/18 07:30 Lymph # (Auto) 1.6 (1.2-3.4) 12/02/18 07:30 [place] # (Auto) 0.4 (0.1-0.6) 12/02/18 07:30 Eos # (Auto) 0.2 (0.0-0.7) 12/02/18 07:30 Baso # (Auto) 0.01 K/mm3 (0.0-2.0) 12/02/18 07:30 PT 11.9 SECONDS (9.4-12.5) 12/01/18 08:10 INR 1.03 12/01/18 08:10 APTT 24.3 Seconds (25.1-36.5) L 12/01/18 08:10 Sodium 140 mmol/L (132-148) 12/02/18 07:30 Potassium 4.1 mmol/L (3.6-5.0) 12/02/18 07:30 Chloride 108 mmol/L (98-107) H 12/02/18 07:30 Carbon Dioxide 26 mmol/L (21-33) 12/02/18 07:30 Anion Gap 10 (10-20) 12/02/18 07:30 BUN 11 mg/dL (7-21) 12/02/18 07:30 Creatinine 0.6 mg/dl (0.7-1.2) L 12/02/18 07:30 Est GFR ( Amer) > 60 12/02/18 07:30 Est GFR (Non-Af Amer) > 60 12/02/18 07:30 Random Glucose 76 mg/dL (70-110) 12/02/18 07:30 Calcium 8.8 mg/dL (8.4-10.5) 12/02/18 07:30 Phosphorus 3.2 mg/dL (2.5-4.5) 12/02/18 07:30 Magnesium 2.2 mg/dL (1.7-2.2) 12/02/18 07:30 Total Bilirubin 0.6 mg/dL (0.2-1.3) 12/02/18 07:30 AST 24 U/L (14-36) 12/02/18 07:30 ALT 23 U/L (7-56) 12/02/18 07:30 Alkaline Phosphatase 51 U/L (38-126) 12/02/18 07:30 Total Protein 6.6 g/dL (5.8-8.3) 12/02/18 07:30 Albumin 3.9 g/dL (3.0-4.8) 12/02/18 07:30 Globulin 2.7 gm/dL 12/02/18 07:30 Albumin/Globulin Ratio 1.4 (1.1-1.8) 12/02/18 07:30 Lipase 62 U/L (23-300) 11/30/18 22:00 Beta HCG, Quant < 2.39 mIU/mL (0-6.15) 11/30/18 22:00 Urine Color Light red (YELLOW) 11/30/18 23:55 Urine Appearance Cloudy (CLEAR) 11/30/18 23:55 Urine pH 6.0 (4.7-8.0) 11/30/18 23:55 Ur Specific [place] 1.015 (1.005-1.035) 11/30/18 23:55 Urine Protein Negative mg/dL (<30 mg/dL) 11/30/18 23:55 Urine Glucose (UA) Negative mg/dL (NEGATIVE) 11/30/18 23:55 Urine Ketones 40 mg/dL (NEGATIVE) H 11/30/18 23:55 Urine Blood Large (NEGATIVE) H 11/30/18 23:55 Urine Nitrate Negative (NEGATIVE) 11/30/18 23:55 Urine Bilirubin Negative (NEGATIVE) 11/30/18 23:55 Urine Urobilinogen 0.2 E.U./dL (<1 E.U./dL) 11/30/18 23:55 Ur Leukocyte Esterase Negative [place]/uL (NEGATIVE) 11/30/18 23:55 Urine RBC Tntc /hpf (0-2) H 11/30/18 23:55 Urine WBC 0 - 2 /hpf (0-6) 11/30/18 23:55 Ur Epithelial Cells 0 - 2 /hpf (0-5) 11/30/18 23:55 Urine Bacteria Rare /hpf (NONE) 11/30/18 23:55 Blood Type A POSITIVE 12/01/18 08:10 Blood Type Confirm A POSITIVE 12/01/18 09:30 Antibody Screen Negative 12/01/18 08:10 BBK History Checked No verified bt 12/01/18 08:10 Attending/Attestation - Attestation I have personally seen and examined this patient.: Yes I have fully participated in the care of the patient.: Yes I have reviewed all pertinent clinical information, including history, physical exam and plan: Yes Notes (Text): 12/02/18 14:21 33 year old female with past medical history of PCOS and chlamydia which was treated who presented with complaint of lower abdominal pain and cramping. She had a CT abdomen/pelvis done which showed moderate amount of mildly hyperdense fluid in the abdomen and pelvis, possibly representing a small amount of blood- tinged peritoneal fluid, possibly due to ruptured hemorrhagic cyst. Pelvis ultrasound showed endometrial echo complex, right adnexa, simple cyst left adnexa and trace fluid in pelvis. Abdomen ultrasound showed trace ascites. She was seen by surgery. Films and care also discussed with SEA[employer] AND SERVICE MEAT MANAGER who recommended conservative management and outpatient follow up. Patient's symptoms did improve. She is tolerating diet. Patient is discharged home to follow up with [facility] clinic. Follow up with SE[employer] SERVICE MEAT MANAGER. Ruben Ferreira MD Hospitalist.
== END 2018-12-02 13:41 | disposition home or self-care (01) ==
LOC: ED 20:22 → ERH 12-01 03:01 → 5RNO 12-01 04:59
PROVIDERS: ADMIT Internal Medicine; ATTEND Internal Medicine
DX: E28.2 Polycystic ovarian syndrome (principal); F12.90 Cannabis use, unspecified, uncomplicated; F17.210 Nicotine dependence, cigarettes, uncomplicated; Z88.0 Allergy status to penicillin; Z87.892 Personal history of anaphylaxis
CPT/HCPCS: 36415; 71045; 74177; 76700; 76856; 80053; 81001; 83690; 83735; 84100; 84702; 85025; 85027; 85610; 85730; 86609; 86850; 86900; 87040; 93005; 96361; 96365; 96367; 96375; 99285; G0378; J1885; J2270; J2405; J7030; J7040; J7120; Q9967

== ENCOUNTER 2018-12-11 16:52 | Outpatient (CLI) | payer OTHER | END 2018-12-11 16:53 | disposition home or self-care (01) | LOC: LAB 16:52 ==